=== PATIENT | male | born 1980 | race Caucasian/White ===

== ENCOUNTER 2020-09-26 12:19 | Outpatient (CLI) | payer MEDICAID | END 2020-09-26 12:20 | disposition critical access hospital (66) | LOC: EMS 12:19 | DX: R63.1 Polydipsia (principal); R46.89 Other symptoms and signs involving appearance and behavior | CPT/HCPCS: A0425; A0427; A0999 ==

== ENCOUNTER 2020-09-26 12:45 | Emergency (ER) | payer MEDICAID ==
[2020-09-26] MEDS ORDERED: LORazepam 2 MG/ML VIAL IVP STA (13:05)
[2020-09-26] MEDS ORDERED: SODIUM CHLORIDE 0.9% 1,000 ML IV STA ×2 (13:05)
--- NOTE | 2020-09-26 13:08 | ED Physician Documentation ---
PD HPI ALTERED MENTAL STATUS - Stated complaint Stated Complaint: Altered Mental Status - Chief complaint Chief Complaint: Neuro - History obtained from History obtained from: EMS - Additional information Additional information: 40-year-old gentleman brought in by ambulance for altered mental status. Reportedly had been using some cannabis edibles and then was found in a ditch eating plants. He is unable to provide any history, just mumbling historian. No records on him in the EMR. Review of Systems Unable to obtain: Confused PD PAST MEDICAL HISTORY - Allergies Allergies/Adverse Reactions: Allergies Allergy/AdvReac Type Severity Reaction Status Date / Time Unable to Assess Allergy Verified 09/26/20 12:56 PD ED PE NORMAL - Vitals Vital signs reviewed: Yes - General General: Other (He makes eye contact and is mumbling nonsensical speech.) - HEENT HEENT: Other (Midpoint reactive pupils not particularly dilated) - Neck Neck: Supple, no meningeal sign, No bony TTP (Quite tachycardic but regular without murmur) - Respiratory Respiratory: No respiratory distress, Clear bilaterally - Abdomen Abdomen: Normal bowel sounds, Soft, Non tender - Back Back: No CVA TTP, No spinal TTP - Derm Derm: Other (Warm and dry, not sweaty) - Extremities Extremities: No edema, No calf tenderness / cord - Neuro Eye Opening: Spontaneous Motor: Localizes to Pain Verbal: Inappropriate GCS Score: 12 Results - Vitals Vitals: Vital Signs - 24 hr 09/26/20 09/26/20 09/26/20 12:47 12:58 13:00 Temperature 39.1 C H Heart Rate 143 H 143 H 146 H Respiratory 11 L 17 Rate Blood Pressure 129/69 144/78 H O2 Saturation 99 99 09/26/20 09/26/20 09/26/20 13:30 14:27 14:33 Temperature 37.1 C 37.2 C Heart Rate 125 H 104 H Respiratory 13 11 L Rate Blood Pressure 154/83 H 124/65 O2 Saturation 98 97 Oxygen O2 Source Room air - Labs Labs: Laboratory Tests 09/26/20 09/26/20 09/26/20 13:12 13:12 13:12 WBC 6.9 RBC 4.53 L Hgb 12.1 L Hct 37.3 L MCV 82.3 MCH 26.7 L MCHC 32.4 RDW 15.1 H Plt Count 199 MPV 10.0 Neut # (Auto) 5.8 Lymph # (Auto) 0.7 L Frederick # (Auto) 0.3 Eos # (Auto) 0.0 Baso # (Auto) 0.0 Absolute Nucleated RBC 0.00 Nucleated RBC % 0.0 Sodium 139 Potassium 3.6 Chloride 102 Carbon Dioxide 28 Anion Gap 9.0 BUN 16 Creatinine 1.0 Estimated GFR (MDRD) 84 L Glucose 110 H Calcium 9.0 Total Bilirubin 0.9 AST 23 ALT 22 Alkaline Phosphatase 50 Total Creatine Kinase Total Protein 7.0 Albumin 4.0 Globulin 3.0 Albumin/Globulin Ratio 1.3 Lipase 21 L TSH 0.51 Urine Color Urine Clarity Urine pH Ur Specific Isabel Urine Protein Urine Glucose (UA) Urine Ketones Urine Occult Blood Urine Nitrite Urine Bilirubin Urine Urobilinogen Ur Leukocyte Esterase Ur Microscopic Review Urine Culture Comments Salicylates < 6.0 Urine Opiates Screen Ur Oxycodone Screen Urine Methadone Screen Ur Propoxyphene Screen Acetaminophen < 10 L Ur Barbiturates Screen Ur Tricyclics Screen Ur Phencyclidine Scrn Ur Amphetamine Screen U Methamphetamines Scrn U Benzodiazepines Scrn Urine Cocaine Screen U Cannabinoids Screen Ethyl Alcohol < 5.0 09/26/20 09/26/20 13:12 14:07 WBC RBC Hgb Hct MCV MCH MCHC RDW Plt Count MPV Neut # (Auto) Lymph # (Auto) Frederick # (Auto) Eos # (Auto) Baso # (Auto) Absolute Nucleated RBC Nucleated RBC % Sodium Potassium Chloride Carbon Dioxide Anion Gap BUN Creatinine Estimated GFR (MDRD) Glucose Calcium Total Bilirubin AST ALT Alkaline Phosphatase Total Creatine Kinase 154 Total Protein Albumin Globulin Albumin/Globulin Ratio Lipase TSH Urine Color YELLOW Urine Clarity CLEAR Urine pH 6.5 Ur Specific Isabel 1.010 Urine Protein NEGATIVE Urine Glucose (UA) NEGATIVE Urine Ketones NEGATIVE Urine Occult Blood TRACE-INTA Urine Nitrite NEGATIVE Urine Bilirubin NEGATIVE Urine Urobilinogen 0.2 (NORMAL) Ur Leukocyte Esterase NEGATIVE Ur Microscopic Review NOT INDICATED Urine Culture Comments NOT INDICATED Salicylates Urine Opiates Screen NEGATIVE Ur Oxycodone Screen NEGATIVE Urine Methadone Screen NEGATIVE Ur Propoxyphene Screen NEGATIVE Acetaminophen Ur Barbiturates Screen NEGATIVE Ur Tricyclics Screen NEGATIVE Ur Phencyclidine Scrn NEGATIVE Ur Amphetamine Screen NEGATIVE U Methamphetamines Scrn NEGATIVE U Benzodiazepines Scrn NEGATIVE Urine Cocaine Screen NEGATIVE U Cannabinoids Screen POSITIVE H Ethyl Alcohol PD MEDICAL DECISION MAKING - ED course ED course: 40-year-old gentleman presents with altered mental status status post reported drug abuse. Differential diagnosis would include amphetamine or other sympathomimetic intoxication, profound hyperthyroidism, sepsis. Doubt sepsis given the history. 40-year-old gentleman presents by ambulance for altered mental status. After a couple of hours his mental status cleared significantly and he corroborates the previously obtained history which was set he took a cannabis edible and probably the dose was just too much for him. He is agreeable to talk to the director social. Departure - Departure Disposition: 01 Home, Self Care Clinical Impression: Cannabis abuse with intoxication Condition: Good Record reviewed to determine appropriate education?: Yes Instructions: ED Drug Abuse General Comments: Call your doctor to arrange a follow-up appointment, make the next available appointment. In the interim, return anytime if worse or if new symptoms develop.
[2020-09-26 13:18] LABS: BASOPHILS % (AUTO) 0.4 %; EOSINOPHILS % (AUTO) 0.1 %; HCT - HEMATOCRIT 37.3 % (42.0-52.0); HGB - HEMOGLOBIN 12.1 g/dL (14.0-18.0); LYMPHOCYTES # (AUTO) 0.7 10^3/uL (1.5-3.5); LYMPHOCYTES % (AUTO) 10.4 %; MEAN CORPUSCULAR HEMOGLOBIN 26.7 pg (27.0-31.0); MEAN CORPUSCULAR HGB CONC 32.4 g/dL (32.0-36.0); MEAN CORPUSCULAR VOLUME 82.3 fL (80.0-94.0); MONOCYTES # (AUTO) 0.3 10^3/uL (0.0-1.0); MONOCYTES % (AUTO) 4.9 %; NEUTROPHILS # (AUTO) 5.8 10^3/uL (1.5-6.6); NEUTROPHILS % (AUTO) 83.9 %; PLT - PLATELET COUNT 199 10^3/uL (130-450); RED BLOOD COUNT 4.53 10^6/uL (4.70-6.10); RED CELL DISTRIBUTION WIDTH 15.1 % (12.0-15.0); WHITE BLOOD COUNT 6.9 x10^3/uL (4.8-10.8)
[2020-09-26 13:36] LABS: ACETAMINOPHEN < 10 ug/mL (10-30); ALBUMIN/GLOBULIN RATIO 1.3 (1.0-2.2); ALKALINE PHOSPHATASE 50 IU/L (42-121); ALT ALANINE AMINOTRANSFERASE 22 IU/L (10-60); AST ASPARTATE AMINOTRANSFERASE 23 IU/L (10-42); BILIRUBIN,TOTAL 0.9 mg/dL (0.2-1.0); BUN - BLOOD UREA NITROGEN 16 mg/dL (6-20); CARBON DIOXIDE - CO2 28 mmol/L (21-32); CHLORIDE 102 mmol/L (101-111); ETOH - ETHANOL < 5.0 mg/dL; GFR - MDRD 84 (>89); GLUCOSE 110 mg/dL (70-100); LIPASE 21 U/L (22-51); POTASSIUM 3.6 mmol/L (3.5-5.0); SALICYLATE < 6.0 mg/dL; SODIUM 139 mmol/L (135-145)
[2020-09-26 14:15] LABS: MUDS CUTOFF CONCENTRATIONS CUTOFF CONC BELOW:
[2020-09-26 14:18] LABS: BILIRUBIN,URINE NEGATIVE (NEGATIVE); CLARITY,URINE CLEAR (CLEAR); GLUCOSE, URINE (UA) NEGATIVE (NEGATIVE); KETONES,URINE (UA) NEGATIVE (NEGATIVE); LEUKOCYTE ESTERASE, URINE NEGATIVE (NEGATIVE); NITRITE,URINE NEGATIVE (NEGATIVE); OCCULT BLOOD,URINE TRACE-INTA (NEGATIVE); PH,URINE 6.5 PH (5.0-7.5); PROTEIN,URINE NEGATIVE (NEGATIVE); UROBILINOGEN,URINE 0.2 (NORMAL) E.U./dL (NORMAL)
[2020-09-26 14:36] LABS: AMPHETAMINE SCREEN,URINE NEGATIVE (NEGATIVE); BARBITURATE SCREEN,UR NEGATIVE (NEGATIVE); BENZODIAZEPINES SCREEN, URINE NEGATIVE (NEGATIVE); COCAINE SCREEN URINE NEGATIVE (NEGATIVE); METHADONE SCREEN, URINE NEGATIVE (NEGATIVE); METHAMPHETAMINES SCREEN, URINE NEGATIVE (NEGATIVE); OPIATE SCREEN, URINE NEGATIVE (NEGATIVE); OXYCODONE SCREEN, URINE NEGATIVE (NEGATIVE); PROPOXYPHENE SCREEN, URINE NEGATIVE (NEGATIVE); THC CANNABINOID SCREEN, URINE POSITIVE (NEGATIVE); TRICYCLIC ANTIDEPRESSANT,URINE NEGATIVE (NEGATIVE)
[2020-09-26 15:43] VITALS: BP 115/65
== END 2020-09-26 16:57 | disposition home or self-care (01) ==
LOC: ED 12:45
DX: F12.129 Cannabis abuse with intoxication, unspecified (principal); R00.0 Tachycardia, unspecified
CPT/HCPCS: 36415; 51701; 80053; 80306; 80307; 80320; 80329; 81003; 82550; 83690; 84443; 85025; 96374; 99281; 99284; J2060; 81001; 87086

== ENCOUNTER 2021-01-04 15:08 | Outpatient (CLI) | payer MEDICAID | END 2021-01-04 15:09 | disposition EMS.NT | LOC: EMS 15:08 | DX: R56.9 Unspecified convulsions (principal) ==

== ENCOUNTER 2021-06-16 17:19 | Outpatient (CLI) | payer MEDICAID | END 2021-06-16 17:20 | disposition EMS.NT | LOC: EMS 17:19 | DX: M54.9 Dorsalgia, unspecified (principal) ==

== ENCOUNTER 2021-11-13 15:21 | Outpatient (CLI) | payer MEDICAID | END 2021-11-13 15:22 | disposition critical access hospital (66) | LOC: EMS 15:21 | DX: R56.9 Unspecified convulsions (principal) | CPT/HCPCS: A0425; A0429; A0999 ==